=== PATIENT | female | born 1960 | race Caucasian/White ===

== ENCOUNTER → 2019-05-13 14:38 | Outpatient (CLI) | payer OTHER, SELFPAY ==
--- NOTE | 2019-05-13 | DI.ECHO.S_ITS ---
[facility]---------+ [facility] +---------+ : : [address] : [place] : : : : [id number] : : : : Phone: [phone]+ Echocardiogram Report + + :Name: Juan BURGER Date: 05/13/2019 Height: 61 in : :[facility] Weight: 140 lb : : Gender: Female BSA: 1.6 m2 : :: 1960 Age: 58 yrs BP: 138/82 mmHg: :Reason For Study: MURMUR : :Ordering Physician: Sj : :Vickie Kennedy Performed By: Mj Villatoro : :Referring: SJ KENNEDY : + + Interpretation Summary The left ventricle is normal in size. The ejection fraction is estimated to be 65-70%. The right ventricle is normal in size and function. No significant valvular pathology seen. The IVC is of normal diameter and collapses greater than 50% with a sniff. This suggests a low right atrial pressure of 3 mm Hg. Procedure: A two-dimensional transthoracic echocardiogram with color flow and Doppler was performed. The study quality was technically adequate. There is no prior echocardiogram noted for this patient. The patient was in normal sinus rhythm during the exam. Left Ventricle: The left ventricle is normal in size. Proximal septal thickening is noted. There is no echo evidence for significant left ventricular outflow tract obstruction. There is no thrombus. The ejection fraction is estimated to be 65-70%. There are no focal wall motion abnormalities. Diastolic parameters suggest a relaxation abnormality of the left ventricle, consistent with probable normal filling pressures. Right Ventricle: The right ventricle is normal in size and function. Atria: The left atrial size is normal. Right atrial size is normal. The interatrial septum is intact with no evidence for an atrial septal defect. Mitral Valve: The mitral valve leaflets are slightly calcified. There is trace mitral regurgitation. Aortic Valve: The aortic valve is trileaflet. The aortic valve opens well. There is no aortic valve stenosis. No aortic regurgitation is present. Tricuspid Valve: The tricuspid valve is normal in structure and function. There is trace tricuspid regurgitation. Pulmonary artery pressures cannot be estimated because of the lack of a measurable TR jet velocity. Pulmonic Valve: The pulmonic valve is normal in structure and function. There is trace pulmonic regurgitation. Great Vessels: The aortic root is normal size. The dimensions of the ascending aorta are normal. The pulmonary artery is normal size. The IVC is of normal diameter and collapses greater than 50% with a sniff. This suggests a low right atrial pressure of 3 mm Hg. Pericardium/ Pleura There is no pericardial effusion. There is no pleural effusion. MMode/2D Measurements & Calculations LVIDd: 3.4 cm LVOT diam: 1.8 cm LVIDs: 2.3 cm Ao root diam: 2.9 cm FS: 34.1 % Aortic Jxn: 2.7 cm EPSS: 0.43 cm asc Aorta Diam: 3.0 cm IVSd: 1.0 cm LVPWd: 0.95 cm LV pack. diameter/BSA (cm/m^2): 2.1 LV sys. diameter/BSA (cm/m^2): 1.4 LA A2 area: 15.4 cm2 RA long axis: 4.2 cm LA A4 area: 14.1 cm2 RA area: 11.5 cm2 LA length (vol): 4.6 cm RA vol: 27.1 ml LA vol: 40.1 ml RA : 16.7 ml/m2 LA vol index: 24.7 ml/m2 TAPSE: 2.4 cm Doppler Measurements & Calculations Ao V2 max: 109.7 cm/sec LVOT Max Joni: 98.7 cm/sec Ao V2 mean: 81.2 cm/sec LV V1 max P.9 mmHg Ao max P.8 mmHg LV V1 VTI: 20.0 cm Ao mean P.0 mmHg LUIS FELIPE(I,D): 2.3 cm2 Ao V2 VTI: 23.4 cm LUIS FELIPE(V,D): 2.4 cm2 sev ratio: 0.85 LUIS FELIPE indexed to BSA (cm^2/m^2): 1.4 MV E max joni: 82.1 cm/sec PA V2 max: 104.5 cm/sec MV A max joni: 107.6 cm/sec PA V2 mean: 77.0 cm/sec MV E/A: 0.76 PA mean P.7 mmHg Med Peak E' Joni: 7.0 cm/sec PA Accel Time: 0.11 sec E/E' med: 11.7 Lat Peak E' Joni: 8.7 cm/sec E/E' lat: 9.4 E/e' average: 10.5 MV dec time: 0.23 sec SV(LVOT): 53.1 ml Reading Physician:05:18 PM
== END ==
PROVIDERS: Visit Provider Internal Medicine Cardiovascular Disease
DX: R01.1 Cardiac murmur, unspecified (principal); R55 Syncope and collapse
CPT/HCPCS: 93306

== ENCOUNTER → 2023-08-06 09:59 | Outpatient (CLI) | payer OTHER, SELFPAY ==
[2023-08-06 19:21] LABS: HEMOLYSIS < 15 (0-50)
[2023-08-06 19:26] LABS: Add Manual Diff / Slide Review NO; Basophils Absolute Auto 100 /uL (0-100); Basophils Percent Auto 1.3 % (0-2); Eosinophils Absolute Auto 100 /uL (0-450); Eosinophils Percent Auto 2.1 % (2-4); Hematocrit 44.1 % (36-46); Hemoglobin 14.8 g/dL (12.0-16.0); Lymphocytes Absolute Auto 1300 /uL (1100-4500); Lymphocytes Percent Auto 24.3 % (25-40); Mean Corpuscular HGB Conc 33.6 % (30-36); Mean Corpuscular Volume 95.4 fL (80-100); Monocytes Absolute Auto 500 /uL (0-900); Monocytes Percent Auto 10.1 % (3-14); Neutrophils Absolute Auto 3200 /uL (1500-7000); Neutrophils Percent Auto 62.2 % (50-75); Platelet Count 212 X10^3/uL (150-400); Red Blood Cell Count 4.63 X10^6/uL (4.0-5.2); Red Cell Distribution Width 13.4 % (11.6-14.8); White Blood Cell Count 5.2 X10^3/uL (4.5-11.0)
[2023-08-06 19:36] LABS: Alanine Aminotransferase 20 IU/L (<35); Albumin 4.2 g/dL (3.5-5.0); Albumin Globulin Ratio 1.4 (1.0-2.8); Alkaline Phosphatase 64 U/L (38-126); Aspartate Aminotransferase 23 IU/L (14-36); BUN Creatinine Ratio 17.9 (6-22); Bilirubin Total 0.6 mg/dL (0.2-1.3); Blood Urea Nitrogen 17 mg/dL (7-17); Calcium 9.5 mg/dL (8.4-10.2); Carbon Dioxide 27 mmol/L (22-32); Chloride 107 mmol/L (98-107); Cholesterol 256 mg/dL (140-199); Estimated Glomerular Filt Rate > 60 mL/min (>60); Globulin 2.9 g/dL (1.7-4.1); Glucose 84 mg/dL (80-110); HDL Cholesterol 58 mg/dL (40-60); LDL Cholesterol Calculated 170 mg/dL (<100); Potassium 4.5 mmol/L (3.4-5.1); Sodium 138 mmol/L (137-145); Total Protein 7.1 g/dL (6.3-8.2); Triglycerides 140 mg/dL (35-150)
[2023-08-06 19:56] LABS: TSH w/ Reflex to FT4 0.17 uIU/mL (0.47-4.68)
[2023-08-06 20:32] LABS: Free T4, Direct Thyroxine 1.32 ng/dL (0.78-2.19)
[2023-08-06 21:36] LABS: Vitamin B12 955 pg/mL (239-931)
[2023-08-07 16:58] LABS: Vitamin D 25 Hydroxy (D3) 46.6 ng/mL (30.0-100.0)
== END ==
PROVIDERS: PCP Physician Assistant Medical; Visit Provider Physician Assistant Medical
DX: R79.89 Other specified abnormal findings of blood chemistry (principal); I10 Essential (primary) hypertension; E78.00 Pure hypercholesterolemia, unspecified; E03.9 Hypothyroidism, unspecified
CPT/HCPCS: 80053; 80061; 82306; 82607; 84439; 84443; 85025

== ENCOUNTER → 2024-01-07 08:36 | Outpatient (CLI) | payer OTHER, SELFPAY ==
[2024-01-07 20:28] LABS: Alanine Aminotransferase 17 IU/L (<35); Albumin 4.1 g/dL (3.5-5.0); Albumin Globulin Ratio 1.5 (1.0-2.8); Alkaline Phosphatase 72 U/L (38-126); Aspartate Aminotransferase 23 IU/L (14-36); BUN Creatinine Ratio 12.3 (6-22); Bilirubin Total 0.7 mg/dL (0.2-1.3); Blood Urea Nitrogen 10 mg/dL (7-17); Calcium 8.9 mg/dL (8.4-10.2); Carbon Dioxide 26 mmol/L (22-32); Chloride 107 mmol/L (98-107); Cholesterol 154 mg/dL (140-199); Estimated Glomerular Filt Rate > 60 mL/min (>60); Globulin 2.7 g/dL (1.7-4.1); Glucose 85 mg/dL (80-110); HDL Cholesterol 53 mg/dL (40-60); HEMOLYSIS < 15 (0-50); LDL Cholesterol Calculated 82 mg/dL (<100); Potassium 4.1 mmol/L (3.4-5.1); Sodium 138 mmol/L (137-145); Total Protein 6.8 g/dL (6.3-8.2); Triglycerides 94 mg/dL (35-150)
[2024-01-07 20:52] LABS: TSH w/ Reflex to FT4 < 0.02 uIU/mL (0.47-4.68)
[2024-01-07 21:16] LABS: Free T4, Direct Thyroxine 1.67 ng/dL (0.78-2.19)
== END ==
PROVIDERS: PCP Physician Assistant Medical; Visit Provider Physician Assistant Medical
DX: E78.00 Pure hypercholesterolemia, unspecified (principal); E03.9 Hypothyroidism, unspecified; I10 Essential (primary) hypertension
CPT/HCPCS: 80053; 80061; 84439; 84443